=== PATIENT | male | born 1960 | race Two or more races ===

== ENCOUNTER 2021-04-07 00:07 | Emergency (ER) | payer MEDICAID ==
[~2021-04-07] VITALS: Ht 175.3 cm; Wt 68.0 kg
[2021-04-07] MEDS ORDERED: PROPOFOL 10 MG/ML 20 ML IV ONE (01:00)
[2021-04-07 05:00] VITALS: BP 108/66
== END 2021-04-07 05:10 | disposition home or self-care (01) ==
LOC: EDBD 00:07 → ER 00:23
DX: S43.004A Unspecified dislocation of right shoulder joint, initial encounter (principal); Y08.89XA Assault by other specified means, initial encounter; Y93.89 Activity, other specified; Y92.89 Other specified places as the place of occurrence of the external cause; Y99.8 Other external cause status
CPT/HCPCS: 23650; 70450; 70486; 72125; 73020; 73030; 99152; 99153; 99285; J2704